=== PATIENT | female | born 2005 | race Caucasian/White ===

== ENCOUNTER 2025-02-05 12:31 | Outpatient (CLI) | payer OTHER, SELFPAY ==
--- NOTE | 2025-02-05 13:00 | CRLHL7_ITS ---
For Patients: As a result of the Century Cures Act, medical imaging exams and procedure reports are released immediately into your electronic medical record. You may view this report before your referring provider. If you have questions, please contact your health care provider. INDICATION: Chronic right lower quadrant pain TECHNIQUE: Volumetric helical scanning of the abdomen and pelvis was performed utilizing an enterography protocol. The patient ingested 1300 cc of Breeza contrast material prior to scanning. 44 cc of Isovue 370 contrast material were administered IV. Coronal and sagittal reconstructions were obtained. COMPARISON: None FINDINGS: No bowel wall thickening or abnormal contrast enhancement is identified. No mesenteric edema is identified to suggest active bowel inflammation. No free intraperitoneal fluid is evident. No lymphadenopathy is demonstrated. The liver is normal in size, shape and attenuation. No bile duct dilation is evident. The spleen is within normal limits. The adrenal glands are unremarkable. The pancreas is within normal limits. The kidneys are unremarkable. The bladder is grossly negative. A 4.4 x 3.5 x 2.7 cm left ovarian cyst containing several septations is demonstrated. The right ovary and uterus are grossly negative. A 2.2 x 1.9 x 1.6 cm left vaginal cyst is demonstrated. The lung bases are clear, and heart size is normal. IMPRESSION: 1. Negative CT enterography. 2. 4.4 x 3.5 x 2.7 cm left ovarian cyst containing several septations. 3. 2.2 x 1.9 x 1.6 cm left vaginal cyst. Please note that all CT scans at this facility use dose modulation, iterative reconstruction, and/or weight-based dosing when appropriate to reduce radiation dose to as low as reasonably achievable. Dictated by Prabhu Davison MD @ 02/06/2025 10:47:41 AM (Electronically Signed)
== END 2025-02-05 12:32 | disposition home or self-care (01) ==
PROVIDERS: PCP Family Medicine; Visit Provider Internal Medicine Gastroenterology
DX: R10.31 Right lower quadrant pain (principal); N83.202 Unspecified ovarian cyst, left side; N89.8 Other specified noninflammatory disorders of vagina; R63.4 Abnormal weight loss; K59.00 Constipation, unspecified
CPT/HCPCS: 74177; Q9967